=== PATIENT | male | born 1950 | race Caucasian/White ===

== ENCOUNTER 2018-10-23 10:22 | Inpatient (IN) ==
--- NOTE | 2018-09-20 08:48 | PAT Medication Instructions ---
Medication Instructions Date of Service September 20, 2018 Home Medications [place] Red 500 mg PO DAILY acetaminophen [Tylenol Arthritis Pain] 650 mg PO UD PRN cholecalciferol (vitamin D3) [Vitamin D3] 2,000 unit PO DAILY lisinopril 20 mg PO QAM metoprolol succinate 100 mg PO QAM phoyyuvj-suc-ET-lycopen-lutein [Centrum Silver] 1 tab PO DAILY omeprazole magnesium [Prilosec OTC] 20 mg PO DAILY simvastatin 10 mg PO HS STOP taking 2 weeks before surgery (or as soon as possible if surgery is within 2 weeks) [place] Red 500 mg PO DAILY DO NOT take the morning of surgery cholecalciferol (vitamin D3) [Vitamin D3] 2,000 unit PO DAILY lisinopril 20 mg PO QAM [Centrum Silver] 1 tab PO DAILY Take morning of surgery With a small sip of water, OTHERWISE NOTHING TO EAT OR DRINK AFTER MIDNIGHT: acetaminophen [Tylenol Arthritis Pain] 650 mg PO UD PRN (okay to take up to 4 hours prior to surgery if needed) metoprolol succinate 100 mg PO QAM omeprazole magnesium [Prilosec OTC] 20 mg PO DAILY Take evening before surgery acetaminophen [Tylenol Arthritis Pain] 650 mg PO UD PRN (if needed) simvastatin 10 mg PO HS Other Notes If you have any questions please call us at [phone] or [phone] or [phone] or [phone]
--- NOTE | 2018-09-20 10:45 | Anesthesiology Consultation ---
Date of Service September 20, 2018 Assessment & Plan (1) Encounter for pre-operative examination: Chart Review Chart Review: Acceptable Risk for Surgery and Patient seen in Pre Admission Testing Teaching & Discussion Pre-Anesthesia Teaching/Discussion Notes: Instructed NPO after midnight before surgery,except medications with 15 cc of water. Medication instructions provided according to the PAT guidelines. History Surgery Operation Date: 10/23/18 09:05 Proposed Procedures p Left Total Knee Replacement - Preet Gleason MD Height/Weight Height: 5 ft 9.5 in Weight: 92.5 kg Allergies Allergy/AdvReac Type Severity Reaction Status Date / Time aspirin AdvReac Unknown DYSPEPSIA Verified 09/20/18 10:54 Medications Home Medications Medication Instructions Recorded Confirmed Last Taken [place] Red 500 mg PO DAILY 09/18/18 09/18/18 Unknown acetaminophen [Tylenol Arthritis 650 mg PO UD PRN 09/18/18 09/18/18 Unknown Pain] cholecalciferol (vitamin D3) 2,000 unit PO DAILY 09/18/18 09/18/18 Unknown [Vitamin D3] lisinopril 20 mg PO QAM 09/18/18 09/18/18 09/17/18 metoprolol succinate 100 mg PO QAM 09/18/18 09/18/18 09/17/18 akxjjzqf-wiv-UP-lycopen-lutein 1 tab PO DAILY 09/18/18 09/18/18 Unknown [Centrum Silver] omeprazole magnesium [Prilosec OTC] 20 mg PO DAILY 09/18/18 09/18/18 Unknown simvastatin 10 mg PO HS 09/18/18 09/18/18 09/17/18 Past Medical History Medical History Acid reflux controlled Arthritis cervical Fatty liver History of atrial flutter no recurrences since cardiac ablation (2014); eliquis discontinued given no recurrences s/p cardiac ablation per cardio recommendations Hyperlipidemia Hypertension Osteoarthritis Exercise / Class Metabolic Activity II 4-5 Yardwork/Stairs/Walk up hill Past Surgical History Surgical History History of cardiac cath "years ago"= no stents History of cholecystectomy (with inguinal hernia repair) History of radiofrequency ablation (RFA) procedure for cardiac arrhythmia 2014 History of total right knee replacement Hx of inguinal hernia surgery right/left Past Anesthesia History No Hx of Anesthesia Complications and No Family Hx of Anesthesia Complications History of PONV No Hx of PONV and Hx of Motion Sickness Social History Smoking Status: Current every day smoker tobacco type: cigarettes Smoking cigarettes per day: 1 PPD x 50 years Do You Dip or Chew Tobacco: No Hx Alcohol Use: Yes Alcohol type: beer and wine alcohol intake frequency: 3 or more drinks per day (4 drinks/day) Hx Substance Use: No substance use type: does not use Review of Systems Reflux controlled. Patient denies chest pain, shortness of breath, dyspnea on exertion, cough, wheezing, palpitations. Physical Exam Vital Signs VITALS BP 136/72 P 63 TEMP 98.5 SP02 97%RA RESP 18 PHYSICAL Full neck and c-spine range of motion. Full TMJ range of motion. TMD 3 finger breaths Mallampati Score 3 Dentition: full denture on upper, partial on lower Lungs: clear throughout to auscultation Cardiac: regular rate and rhythm, no murmurs noted Spine: normal Carotid arteries: negative bruit Extremities: no edema Testing Laboratory Results 09/20/18 11:11 PT 10.3 Seconds (9.0-12.0) 09/20/18 11:11 INR 1.0 (0.9-1.1) 09/20/18 11:11 APTT 27.8 Seconds (21.0-31.0) 09/20/18 11:11 Blood Type O Positive 09/20/18 11:11 Antibody Screen NEGATIVE 09/20/18 11:11 08/29/18 SODIUM 142 POTASSIUM 4.4 CHLORIDE 104 CO2 27 BUN 10 CREATININE 1.0 GLUCOSE 106 Electrocardiogram Date: 09/20/18 NSR 66bpm. Chest X-Ray Date: 09/20/18 Subsegmental bibasilar opacities suggest atelectasis. There is mild hyperinflation. Mild pleural thickening of the lung apices without acute process identified.
--- NOTE | 2018-09-20 11:53 | XRay Report ---
XR chest Pre-admission PA/Lat HISTORY: 68 years-old Male pat preoperative exam. No acute chest complaints COMPARISON: None available TECHNIQUE: PA and lateral views of the chest FINDINGS: Cardiomediastinal and hilar silhouettes are within normal limits. Mild biapical pleural thickening. S ubsegmental bibasilar opacities suggest atelectasis. No pneumothorax, pleural effusion, focal airspac e consolidation or overt pulmonary edema. There is mild hyperinflation. Bones of the chest appear jamie ssly intact. IMPRESSION: Mild pleural thickening of the lung apices without acute process identified. The above report was generated using voice recognition software. It may contain grammatical, syntax o r spelling errors. Electronically signed by: Paulino Henderson M.D. 09/20/2018 11:52 AM
[2018-09-20 13:12] LABS: Basophils # (auto) 0.03 K/uL (0-0.2); Basophils % (auto) 0.3 %; Eosinophils # (auto) 0.16 K/uL (0-0.5); Eosinophils % (auto) 1.8 %; Hematocrit (blood only) 42.6 % (42-52); Hemoglobin 14.6 g/dL (14.0-18.0); Immature Granulocytes # (auto) 0.02 K/uL (0.00-0.02); Immature Granulocytes % (auto) 0.2 %; Lymphocytes # (auto) 3.03 K/uL (1.2-3.4); Lymphocytes % (auto) 34.9 %; Mean Corpuscular Hemoglobin 34.2 pg (25-34); Mean Corpuscular Hgb Conc 34.3 g/dL (32-36); Mean Corpuscular Volume 99.8 fL (80-100); Mean Platelet Volume 10.6 fL (7.4-10.4); Monocytes # (auto) 0.91 K/uL (0.11-0.59); Monocytes % (auto) 10.5 %; Neutrophils # (auto) 4.52 K/uL (1.4-6.5); Neutrophils % (auto) 52.3 %; Platelet Count 149 K/uL (130-400); RDW Coefficient of Variation 12.9 % (11.5-14.5); RDW Standard Deviation 46.7 fL (36.4-46.3); Red Blood Count 4.27 M/uL (4.7-6.1); White Blood Count 8.67 K/uL (4.8-10.8)
[2018-09-20 13:23] LABS: Partial Thromboplastin Time 27.8 Seconds (21.0-31.0); Prothrombin Time 10.3 Seconds (9.0-12.0)
--- NOTE | 2018-10-18 23:37 | History and Physical Report ---
DATE OF ADMISSION: 10/23/2018 CHIEF COMPLAINT: Left knee pain and discomfort. HISTORY OF PRESENT ILLNESS: A 68-year-old gentleman who presents for surgical treatment of his left knee. He is from [place]. He has a 5+ year history of increasing left knee pain and discomfort. He has been through an extensive conservative treatment including steroid shots as well as viscosupplementation. All this has helped him some, but has become less successful over time. Pain is mostly medial. The more he walks, the more it hurts. He does have a history of a knee scope 8-10 years ago but not sure who did it. Of note, the patient has right knee replacement by Dr. Avila 2 years ago. Still aches and pains and that is why he has presented here for surgical treatment of his left knee. He is referred by his medical doctor, Dr. Worthy. PAST MEDICAL HISTORY: 1. Hypertension. 2. Elevated cholesterol. 3. Peptic ulcer disease. 4. Unspecified cardiac ablation. 5. Obesity, BMI of 30. 6. Low back pain/sciatica. PAST SURGICAL HISTORY: Includes: 1. Right knee replacement [address] Avila. 2. Right herniorrhaphy. 3. Left herniorrhaphy. 4. Cholecystectomy. 5. Unspecified ablation 3 years ago. ALLERGIES: ASPIRIN, WHICH CAUSES GI UPSET. No true anaphylactic reaction. CURRENT MEDICATIONS: Include: 1. Lisinopril. 2. Metoprolol. 3. Simvastatin. 4. Vitamin D3. 5. Omegared. 6. Multivitamin. SOCIAL HISTORY: A 68-year-old male, he is from [place]. He is . Three drinks per day. [id number] history of smoking. FAMILY HISTORY: Significant for diabetes. REVIEW OF SYSTEMS: Significant for alcohol and smoking history. No current chest pain or shortness of breath. No history of bleeding disorders. He does report this cardiac history, but has a normal sinus rhythm on EKG. PHYSICAL EXAMINATION: GENERAL: Shows a pleasant, middle-aged gentleman. HEENT: Benign. NECK: Supple, no lymphadenopathy. LUNGS: Clear to auscultation. HEART: Regular rate and rhythm. ABDOMEN: Soft, nontender, nondistended. EXTREMITIES: Grossly neurovascularly intact except as follows: Examination of the left knee reveals patient ambulates independently. He does limp on the left side. He has got varus alignment to his knee. A little bit of varus thrust with weightbearing. He has got well-healed portal sites from his previous knee arthroscopy. Small knee effusion. Range of motion 5-125. No instability. He is neurologically intact. No pain with hip motion. X-RAYS: X-rays of the left knee were reviewed. Show advanced medial compartment DJD. He has got complete loss of his medial joint space. He has got a little tilt to his patella and a little bit of patella maltracking with some patellofemoral disease as well. MRI from the outside was reviewed. Shows advanced medial compartment DJD with bone marrow edema in the medial femoral condyle and medial tibial plateau. ASSESSMENT: A 68-year-old gentleman 2 years out from a right knee replacement done elsewhere with left knee pain and degenerative joint disease. He has a history of knee arthroscopy in the past. He has failed conservative treatment and would like to have his left knee replaced. PLAN: We are going to take him to the operating room and do a left total knee replacement. The risks and benefits of this procedure were explained to the patient including but not limited to DVT, PE, , infection, neurological injury, vascular injury, bleeding problem, pain, limited range of motion, stiffness, failure to relieve symptoms, incomplete relief of symptoms, need for further surgery in the future, fracture, leg length inequality, nerve palsy, etc. The patient understands and desires to proceed. Informed consent was obtained. He does have a history of smoking and will likely need a nicotine patch in the hospital. We will likely do DT prophylaxis for his alcohol history. He knows to hold his lisinopril on the morning of surgery and take his metoprolol. As far as DVT prophylaxis, we are going to use baby aspirin twice a day. If he develops stomach discomfort, we will have to change plans. He is aware of this and wants to proceed. As far as discharge plans, he is planning to be discharged to home with [facility] home health program.
[~2018-10-23 10:22] MED LIST: ACETAMINOPHEN 500 MG TAB PO SCH; BUPIVACAINE 0.5 % 5 MG/1 ML PF 10ML VIAL ONE; BUPIVACAINE LIPOSOME/PF 266 MG, BUPIVACAINE/EPINEPHRINE 50 ML, SODIUM CHLORIDE 0.9% 30 ... INFIL SCH; CEFAZOLIN 2000MG 2,000 MG/15 ML SYR IV SCH; FAMOTIDINE 20 MG TAB PO SCH; GABAPENTIN 300 MG CAP PO SCH; LR 500ML BOLUS, THEN 15ML/HR IV SCH; LR 60ML/HR IV SCH; METOCLOPRAMIDE HCL 10 MG TABLET PO SCH; ROPIVACAINE 0.5% 5 MG/ML 30 ML VIAL ONE; TRANEXAMIC ACID 1,000 MG **IV Intra-op IV SCH
[2018-10-23] MEDS ORDERED: KETAMINE HCL INJ 50 MG/ML 10 ML VIAL ONE (10:25)
[2018-10-23] MEDS ORDERED: PROPOFOL IV EMULSION 10 MG/ML 20 ML VIAL IV ONE (10:32)
[2018-10-23] MEDS ORDERED: ONDANSETRON INJ 2 MG/ML 2 ML VIAL ONE (10:32)
[2018-10-23] MEDS ORDERED: LIDOCAINE HCL 2% 2 ML VIAL/AMP(20MG/ML) INFIL ONE (10:32)
--- NOTE | 2018-10-23 10:49 | History & Physical Bridge Note ---
Date of Service October 23, 2018 History & Physical Bridge Note I have examined the patient, reviewed the History & Physical and in the interval since the performance of the History & Physical I have noted the following changes of clinical significance: no changes noted
[2018-10-23] MEDS ORDERED: MIDAZOLAM HCL 1 MG/ML 2ML VIAL ONE (10:54)
[2018-10-23] MEDS ORDERED: fentaNYL citrate 100 MCG/2 ML VIAL ONE (10:55)
[2018-10-23] MEDS ORDERED: BACITRACIN INJ 50,000 UNIT VIAL ONE (11:37)
[2018-10-23] MEDS ORDERED: SODIUM CHLORIDE 0.9% PF 50 ML VIAL ONE (11:37)
[2018-10-23] MEDS ORDERED: EPINEPHrine INJ 1 MG/ML AMP ONE (11:38)
[2018-10-23] MEDS ORDERED: BUPIVACAINE 0.25% 30 ML VIAL ONE (11:38)
[2018-10-23] MEDS ORDERED: HYDROmorphone INJ 1 MG/ML SYRINGE IV PRN (12:07)
[2018-10-23] MEDS ORDERED: ONDANSETRON INJ 2 MG/ML 2 ML VIAL IV PRN ×2 (12:07→15:54)
[2018-10-23] MEDS ORDERED: ATROPINE SULFATE 0.1 MG/ML 10ML SYR IV PRN (12:07)
[2018-10-23] MEDS ORDERED: KETOROLAC TROMETHAMINE 15 MG/ML VIAL IV PRN (12:07)
[2018-10-23] MEDS ORDERED: ePHEDrine sulfate 50 MG/ML AMP IV PRN (12:07)
[2018-10-23] MEDS ORDERED: BUPIVACAINE LIPOSOME 1.3% 266 MG/20 ML VIAL ONE (12:33)
[2018-10-23] MEDS ORDERED: GLYCOPYRROLATE 0.2 MG/ML VIAL ONE (12:51)
--- NOTE | 2018-10-23 14:05 | Post Operative Brief Note ---
PG Immediate Post Op with CF Date of Surgery October 23, 2018 Pre & Post Diagnosis Operation Date: 10/23/18 12:45 Pre-Op Diagnosis: LEFT KNEE DEGENERATIVE JOINT DISEASE W/KNEE PAIN Post-Op Diagnosis: LEFT KNEE DEGENERATIVE JOINT DISEASE W/KNEE PAIN Procedure Operation Date: 10/23/18 12:45 Actual Procedures p Left Total Knee Replacement(Left) - Preet Gleason MD Surgeon Preet Gleason MD Decay Control Operator [place], PAC Estimated Blood Loss 50 Findings Consistent with Post-Op Diagnosis Fluids 1300 cc Specimens Specimen Description: Permanent specimen A: left knee bone and tissue Drains Rosenberg Catheter (16fr rosenberg catheter placed by Ann Fenton PA-C, without diff iculty; rosenberg demonstrates clear yellow urine. Output measured and recorded by anesthesia.) Anesthesia Type Spinal MAC Complications none Disposition Accompanied Patient To Recovery: No Disposition: Recovery Room
--- NOTE | 2018-10-23 14:43 | XRay Report ---
XR knee LT 2V routine CLINICAL HISTORY: 68 years-old Male presenting with Surgical Post Op. TECHNIQUE: Frontal and crosstable lateral views of the left knee were obtained. COMPARISON: 09/20/2018. FINDINGS: There has been interval total left knee arthroplasty with patellar resurfacing. Skin verena in place . Expected soft tissue and intra-articular emphysema. No periprosthetic fracture. No malalignment. At herosclerosis. IMPRESSION: Expected postsurgical appearance status post total left knee arthroplasty with patellar resurfacing. Electronically signed by: Dougie Willis M.D. 10/23/2018 2:42 PM
--- NOTE | 2018-10-23 15:28 | Anesthesiology Progress Note ---
Date of Service October 23, 2018 Anesthesia Post Procedure Vital Signs Vital Signs: Temp Pulse Resp BP Pulse Ox 10/23/18 15:20 36.4 C L 62 12 143/74 H 98 10/23/18 15:10 60 13 126/68 95 10/23/18 15:00 61 13 122/62 95 10/23/18 14:50 60 13 125/72 96 10/23/18 14:40 62 14 116/72 94 10/23/18 14:30 64 19 117/69 95 10/23/18 14:20 70 13 111/68 94 10/23/18 14:12 36.8 C 71 16 103/64 96 10/23/18 10:55 37.0 C 77 18 154/86 H 96 Pain Intensity Left Knee: Pain Intensity: 0 Transfer of Care Handoff Completed per policy Notes Mental Status: alert / awake / arousable Patient Amnestic to Procedure: Yes Nausea / Vomiting: adequately controlled Pain: adequately controlled Airway Patency, RR, SpO2: stable & adequate BP & HR: stable & adequate Hydration State: stable & adequate Anesthetic Complications: no major complications apparent
[2018-10-23] MEDS ORDERED: BISACODYL 10 MG SUPP PR PRN (15:54)
[2018-10-23] MEDS ORDERED: TAMSULOSIN HCL 0.4 MG CAP PO PRN (15:54)
[2018-10-23] MEDS ORDERED: METOCLOPRAMIDE HCL INJ 5 MG/ML 2 ML VIAL IV PRN (15:54)
[2018-10-23] MEDS ORDERED: HYDROmorphone INJ 0.5 MG/0.5 ML SYR IV PRN (15:54)
[2018-10-23] MEDS ORDERED: ALUMINUM/MAGNESIUM SUSP 30 ML UDC PO PRN (15:54)
[2018-10-23] MEDS ORDERED: chlordiazePOXIDE HCl 25 MG CAP PO PRN (15:54)
[2018-10-23] MEDS ORDERED: NALOXONE HCL 0.4 MG/1 ML VIAL/CARP IV PRN (15:54)
[2018-10-23] MEDS ORDERED: OXYCODONE HCL IR 5 MG TAB (IMMEDIATE RELEASE) PO PRN (15:54)
[2018-10-23] MEDS ORDERED: MAGNESIUM HYDROXIDE SUSP 30 ML UDC PO PRN (15:54)
[2018-10-23] MEDS: NICOTINE 14 MG/24 HR PATCH TD SCH (16:33)
[2018-10-23] MEDS: FERROUS GLUCONATE 324 MG TAB PO SCH (16:36)
[2018-10-23] MEDS: ASCORBIC ACID 500 MG TAB PO SCH (16:36)
[2018-10-23] MEDS: KETOROLAC TROMETHAMINE 15 MG/ML VIAL IV SCH ×2 (18:17→23:07)
[2018-10-23] MEDS ORDERED: TRANEXAMIC ACID 1,000 MG in 0.9 % SODIUM CHLORIDE 100 ML IV SCH (20:06)
[2018-10-23] MEDS: SODIUM CHLORIDE 0.9% 1000ML 1,000 ML IV SCH (20:15)
[2018-10-23] MEDS: CEFAZOLIN 2000MG 2,000 MG/15 ML SYR IV SCH (20:20)
[2018-10-23] MEDS: DOCUSATE SODIUM 100 MG CAP PO SCH (20:25)
[2018-10-23] MEDS: ASPIRIN 81 MG ECTAB PO SCH (20:25)
[2018-10-23] MEDS: TAPENTADOL HCL ER 50 MG TABCR PO SCH (20:25)
[2018-10-23] MEDS ORDERED: SIMVASTATIN 10 MG TAB PO SCH (21:00)
[2018-10-23] MEDS ORDERED: SENNA 8.6 MG TAB PO SCH (21:00)
[2018-10-23] MEDS: ACETAMINOPHEN 500 MG TAB PO SCH (21:09)
--- NOTE | 2018-10-23 22:46 | Operative Report ---
DATE OF OPERATION: 10/23/2018 SURGEON: Preet Gleason MD HEATING ELEMENT WINDER: MEGAN Bobo PREOPERATIVE DIAGNOSIS: Left knee degenerative joint disease. POSTOPERATIVE DIAGNOSIS: Left knee degenerative joint disease. PROCEDURE PERFORMED: Left cemented posterior stabilized total knee arthroplasty. COMPLICATIONS: None. ESTIMATED BLOOD LOSS: 50 mL. FLUID REPLACEMENT: 1300 mL crystalloid fluid replacement. ANESTHESIA: Spinal with adductor canal block. DRAINS: None. SPECIMENS: Left knee sent for pathology. OPERATIVE INDICATIONS: The patient is a 68-year-old gentleman who has had a long history of knee problems. He underwent a right knee replacement a couple years ago done elsewhere with an equivocal results. He has had about 5 year history of increasing left knee pain and discomfort. X-rays show advanced medial compartment DJD. He has failed conservative treatment and elected to proceed with operative treatment. OPERATIVE FINDINGS: Operative findings were advanced left knee DJD. He had grade 4 ubhx-ro-xlgl disease of the posteromedial femoral condyle and medial tibial plateau. He did have some spotty grade 4 changes laterally. Moderate size joint effusion. OPERATIVE IMPLANTS: Operative implants consisted of: 1. Biomet Vanguard size 70 left posterior stabilized femoral component. 2. Biomet size 75 tibial tray. 3. A 10 mm posterior stabilized polyethylene insert. 4. A 31 x 8 all poly patella. OPERATIVE PROCEDURE: The patient was taken to the operating room, identified and placed on the operating table in supine position. All contact areas were appropriately padded. IV antibiotics were provided by anesthesia team. A spinal anesthetic and adductor canal block had been provided in the holding area. Simpson catheter was placed in sterile fashion. A left thigh tourniquet was then placed and left lower extremity was then prepped and draped in usual sterile fashion. The left leg was elevated and exsanguinated with an Esmarch and tourniquet was placed at 300 mmHg. An anterior approach to the left knee was then performed through a longitudinal incision centered over the patella. Sharp dissection was carried through subcutaneous tissue down to the level of the extensor mechanism. A medial parapatellar arthrotomy incision was made. Some subperiosteal dissection was carried out medially. The fat pad resected from beneath the patellar tendon. The lateral patellofemoral ligament was released. The patella was everted and knee was flexed. The osteophytes were taken off the distal femur. The ACL and PCL were then released from the distal femur and the tibia subluxated anteriorly. The external tibial alignment jig was then placed in the anterior face of the tibia and adjusted 14 mm medially. Proximal tibial cut was made to remove about a millimeter of bone from most deficient aspect of the posteromedial tibial plateau where he had the eburnated changes. Some osteophytes were taken off both medial and posteromedially. Tibia sized to a size 75. Attention was then drawn to the femur. The distal femur was entered with a sharp drill. Intramedullary canal was suctioned. A left 6-degree valgus cutting guide was placed. Distal femoral cutting block was pinned in place. Distal femoral cut was made to take an additional 3 mm of bone off distal femur. The femur was then sized to a size 70. We did downsize this slightly. The AP cutting block was pinned parallel to the epicondylar axis, which was 5 degrees of external rotation. The anterior cut, anterior chamfer cut, posterior cut, posterior chamfer cuts were made. Box cutting guide was placed and adjusted slightly lateral and box cut was made. The knee was flexed. The remnants of medial and lateral menisci were excised. The osteophytes were taken off the posterior aspect of the femur. Trial femoral component was placed. The tibial tray was pinned in maximum external rotation and drill and stem punch were used to create defect in proximal tibia for the tibial tray. The knee was then trialed and the 10 mm insert fit most appropriately. Attention was then drawn to the patella. The patella was cleaned of all soft tissues. Patella thickness measured 22 mm in thickness, was cut down to 14. It was sized to a size 31 patella. Lug holes were drilled for 31 patella. Lateral osteophyte was removed. Patella button was placed. Knee was taken through range of motion and patella tracked nicely with no thumbs test. Attention was then drawn toward placement of permanent components. All trial components were removed. Bone plug was placed in the distal femur to limit blood loss. A double batch of Pal[place]os G cement was mixed. A Biomet Vanguard size 70 left posterior stabilized femoral component, size 75 tibial tray, a 10 mm posterior stabilized polyethylene insert, and a 31 x 8 all poly patella then cemented in place. Knee was brought into full extension until cement hardened. Final cement check was then performed. Pericapsular tissues were injected with a total of 100 mL of combination of 20 mL Exparel, 30 mL of normal saline, 50 mL of 0.25% Marcaine with epinephrine. The patient did receive 1 gram of tranexamic acid. The tourniquet was then let down for final tourniquet time of 59 minutes. Hemostasis was assured with use of electrocautery. Extensor mechanism was then closed with combination of #1 PDS suture and #1 Vicryl suture in a [id number]-[id number]-yxdii fashion. Extensor mechanism was checked and found to be intact. The subcutaneous tissue was then closed with #2 Dexon suture in a buried interrupted fashion. Skin was closed with skin verena. Leg was then cleaned, dried and a sterile dressing of Xeroform, 4 x 4, sterile cast padding and Abhijit bandage were applied. The patient then transferred to the recovery room in stable condition. The patient tolerated the procedure well with no complication. All needle and sponge counts were correct at the end of the operation. I attest to the content of the Intraoperative Record and any orders documented therein. Any exception s are noted below.
[2018-10-24] MEDS: SODIUM CHLORIDE 0.9% 1000ML 1,000 ML IV SCH (03:23)
[2018-10-24] MEDS: ACETAMINOPHEN 500 MG TAB PO SCH (05:25)
[2018-10-24] MEDS: KETOROLAC TROMETHAMINE 15 MG/ML VIAL IV SCH ×2 (05:25→12:08)
[2018-10-24] MEDS: CEFAZOLIN 2000MG 2,000 MG/15 ML SYR IV SCH (05:25)
[2018-10-24 06:50] LABS: BUN Creatinine Ratio 14.7 (10-20); Calcium 7.8 mg/dl (8.5-10.1); Creatinine Clr Calc Pharmacy 67.5 ml/min; Est GFR (African American) 73.5; Est GFR (Non-African American) 63.5
[2018-10-24 07:23] LABS: Hemoglobin 12.5 g/dL (14.0-18.0); Mean Corpuscular Hemoglobin 33.5 pg (25-34); Mean Corpuscular Volume 96.5 fL (80-100); RDW Coefficient of Variation 12.6 % (11.5-14.5); RDW Standard Deviation 44.4 fL (36.4-46.3); Red Blood Count 3.73 M/uL (4.7-6.1); White Blood Count 6.27 K/uL (4.8-10.8)
[2018-10-24 08:00] LABS: Mean Corpuscular Hgb Conc 34.7 g/dL (32-36); Mean Platelet Volume 9.9 fL (7.4-10.4); Platelet Count 95 K/uL (130-400); Platelet Estimate Decreased (Normal)
--- NOTE | 2018-10-24 08:09 | Progress Note ---
DATE: 10/24/2018 SUBJECTIVE: A 68-year-old gentleman postop day 1 from left knee replacement. He is doing pretty well. Pain is controlled. Had a pretty good night. No chest pain or shortness of breath. Not feeling dizzy or lightheaded. OBJECTIVE: VITAL SIGNS: Temperature 36.9. Vital signs stable. GENERAL: Physical examination shows a pleasant, middle-aged male. He is lying in bed, looks reasonably comfortable. EXTREMITIES: Examination of the left leg reveals the dressing to be clean, dry and intact. Leg is well aligned. He can dorsiflex and plantarflex his foot appropriately. He has got brisk refill with good distal pulse. LABORATORY DATA: Labs are pending. His H and H is pending. Electrolytes are stable. ASSESSMENT: A 68-year-old gentleman postop day 1 from a left knee replacement, doing pretty well. Pain is controlled. He is neurologically intact. PLAN: 1. DVT prophylaxis including thigh-high TEDs, SCDs, and aspirin twice a day. 2. PT/OT. Weight bear as tolerated. Left total knee protocol. 3. Pain control, doing pretty well with current pain regimen. 4. Disposition: He is planning to be discharged home with some home health once adequately recovered. We will see how he does in therapy today.
[2018-10-24] MEDS: FERROUS GLUCONATE 324 MG TAB PO SCH (08:52)
[2018-10-24] MEDS: ASPIRIN 81 MG ECTAB PO SCH (08:53)
[2018-10-24] MEDS: DOCUSATE SODIUM 100 MG CAP PO SCH (08:53)
[2018-10-24] MEDS: ASCORBIC ACID 500 MG TAB PO SCH (08:53)
[2018-10-24] MEDS ORDERED: METOPROLOL SUCC 50MG EXT REL TAB PO SCH (09:00)
[2018-10-24] MEDS ORDERED: CEROVITE ADV FORMULA TAB PO SCH (09:00)
[2018-10-24] MEDS ORDERED: CHOLECALCIFEROL 1,000 UNITS TAB PO SCH (09:00)
[2018-10-24] MEDS ORDERED: OMEGA RED PO SCH (09:00)
[2018-10-24] MEDS ORDERED: LISINOPRIL 20 MG TAB PO SCH (09:00)
[2018-10-24] MEDS ORDERED: THIAMINE HCL 100 MG TAB PO SCH (09:00)
[2018-10-24] MEDS ORDERED: MULTIVITAMIN TAB PO SCH (09:00)
[2018-10-24] MEDS ORDERED: PANTOprazole 40 MG TAB PO SCH (09:00)
[2018-10-24] MEDS ORDERED: FOLIC ACID 1 MG TAB PO SCH (09:00)
[2018-10-24] MEDS: NICOTINE 14 MG/24 HR PATCH TD SCH (09:24)
[2018-10-24] MEDS: TAPENTADOL HCL ER 50 MG TABCR PO SCH (09:32)
--- NOTE | 2018-10-29 15:30 | Discharge Summary ---
ADMITTING PHYSICIAN AND SURGEON: Dr. Preet Gleason. ADMITTING DIAGNOSIS: Left knee degenerative joint disease. SURGERY PERFORMED: Left total knee arthroplasty. SECONDARY DIAGNOSES: Hypertension, elevated cholesterol, peptic ulcer disease, cardiac ablation, obesity, low back pain, sciatica. CONSULTS: None obtained. HISTORY AND PHYSICAL EXAMINATION: Well documented in the patient's chart. HOSPITAL COURSE: The patient was admitted on 10/23/2018, underwent total knee arthroplasty, tolerated the procedure well. There were no complications. He was transferred to the PACU postoperatively and later to the orthopedic floor for further care. He was given Ancef for antibiotic prophylaxis, ALAN stockings, SCDs and aspirin for DVT prophylaxis. Hemoglobin, hematocrit and vital signs were monitored during his hospital stay and remained stable, did not require any blood transfusions. There were no complications. On postop day 1, he was discharged home, set up with home health services, given printed discharge instructions as well as new prescriptions for extra-strength Tylenol, aspirin, and oxycodone. Continue his home medications, continue physical therapy, weightbearing as tolerated, ALAN stockings. Follow up approximately 2 weeks postoperatively or sooner if there are any problems or concerns.
== END 2018-10-24 14:17 | disposition home health service (06) | DRG 470 ==
LOC: ASU 10:22 → 3E 14:11